=== PATIENT | female | born 1935 | race Caucasian/White ===

== ENCOUNTER → 2017-02-17 | Outpatient (CLI) | payer OTHER | LOC: RAD 01:01 | DX: Z12.31 Encounter for screening mammogram for malignant neoplasm of breast (principal) ==

== ENCOUNTER → 2017-07-28 | Outpatient (CLI) | payer OTHER | LOC: RAD 10:25 | DX: R92.8 Other abnormal and inconclusive findings on diagnostic imaging of breast (principal) ==

== ENCOUNTER → 2018-02-19 | Outpatient (CLI) | payer OTHER | LOC: RAD 01:14 | DX: Z12.31 Encounter for screening mammogram for malignant neoplasm of breast (principal) ==

== ENCOUNTER → 2019-02-20 | Outpatient (CLI) | payer OTHER | LOC: RAD 03:02 | DX: Z12.31 Encounter for screening mammogram for malignant neoplasm of breast (principal) ==

== ENCOUNTER → 2020-06-25 | Outpatient (CLI) | payer OTHER | LOC: BC 12:13 | PROVIDERS: ATTEND Family Medicine | DX: Z12.31 Encounter for screening mammogram for malignant neoplasm of breast (principal) ==